=== PATIENT | female | born 1945 | race Caucasian/White ===

== ENCOUNTER 2022-12-24 10:17 | Emergency (ER) | payer MEDICARE ==
[~2022-12-24] VITALS: Ht 152.4 cm; Wt 68.0 kg
[2022-12-24] MEDS ORDERED: PAXLOVID PO ×2 (10:59→15:28)
[2022-12-24 11:23] VITALS: BP 137/73
== END 2022-12-24 11:22 | disposition home or self-care (01) ==
LOC: ED 10:17
DX: U07.1 COVID-19 (principal); R05.9 Cough, unspecified; R52 Pain, unspecified; R51.9 Headache, unspecified; R11.0 Nausea; F41.9 Anxiety disorder, unspecified